=== PATIENT | female | born 1980 | race Caucasian/White ===

== ENCOUNTER 2016-07-30 20:30 | Emergency (ER) | payer BC, OTHER ==
[2016-07-30 20:37] VITALS: BP 131/68; PULSE 70; TEMP 97.6; BMI 35.4
[2016-07-30] MEDS ORDERED: KETOROLAC TROMETHAMINE 30 MG/1 ML VIAL IM ONE (20:45)
[2016-07-30] MEDS ORDERED: KETOROLAC TROMETHAMINE 30 MG/1 ML VIAL ONE (20:48)
--- NOTE | 2016-07-30 20:49 | PDOC ---
History of Present Illness <Zan Duval - Last Filed: 07/30/16 20:45> - General History Source: Patient, Family, Old Records Exam Limitations: No Limitations - History of Present Illness Initial Comments: 07/30/16 20:51 The patient is a 36 year old female with a significant past medical history of osteoporosis s/p torn meniscus, who presents to the emergency department today for further evaluation of left knee pain since this morning. The patient states that when she woke up this morning she immediately began feeling pain and is unsure of what may have triggered it. The patient reports that the pain radiates upward to her thigh and downward to her foot and is exacerbated by flexion and extension of her left knee. The patient reports associated lower back pain. The patient reports that she took 2 advil this morning and 2 advil this evening with minimal alleviation of symptoms. The patient states that she has been in physical therapy and receives cortisone shots. The patient denies fever, chills, and sweats. The patient denies nausea, vomiting, and diarrhea. The patient denies chest pain, cough, and shortness of breath. PCP: Dr. Marino Henry [phone] PAST MEDICAL HISTORY: No significant history reported PAST SURGICAL HISTORY: No significant history reported FAMILY HISTORY: No pertinent history reported SOCIAL HISTORY: None reported MEDICATIONS: Reviewed ALLERGIES: As per nursing notes <Alvarez Cam - Last Filed: 07/30/16 20:52> - General Chief Complaint: Pain Stated Complaint: LT KNEE PAIN Time Seen by Provider: 07/30/16 20:33 Past History - Past Medical History Disorders: Yes (PCOS) Thyroid Disease: Yes (HYPO) - Surgical History Abdominal Surgery: Yes (GASTRIC SLEEVE) - Psycho/Social/Smoking Cessation Hx Anxiety: No Suicidal Ideation: No Smoking History: Never smoked Hx Alcohol Use: No Substance Use Type: None <Zan Duval - Last Filed: 07/30/16 20:45> <Alvarez Cam - Last Filed: 07/30/16 20:52> - Past Medical History Allergies/Adverse Reactions: Allergies Allergy/AdvReac Type Severity Reaction Status Date / Time No Known Allergies Allergy Verified 08/17/14 18:19 Home Medications: Ambulatory Orders Levothyroxine [Synthroid -] 50 mcg PO DAILY 08/17/14 Ibuprofen [Advil -] 400 mg PO PRN PRN 07/30/16 Metformin HCl [Metformin HCl ER] 500 mg PO DAILY 07/30/16 Review of Systems - Review of Systems Able to Perform ROS?: Yes Musculoskeletal: Yes: Symptoms Reported, Back Pain, Joint Pain, Muscle Pain, Other (Left Knee pain) All Other Systems: Reviewed and Negative <Alvarez Cam - Last Filed: 07/30/16 20:52> *Physical Exam - Vital Signs Last Vital Signs Temp Pulse Resp BP Pulse Ox 97.6 F 70 18 131/68 100 07/30/16 20:35 07/30/16 20:35 07/30/16 20:35 07/30/16 20:35 07/30/16 20:35 - Physical Exam General Appearance: Yes: Nourished, Appropriately Dressed. No: Apparent Distress HEENT: positive: Normal ENT Inspection Neck: positive: Supple. negative: Tender Respiratory/Chest: positive: Lungs Clear, Normal Breath Sounds. negative: Respiratory Distress Cardiovascular: positive: Regular Rhythm, Regular Rate Gastrointestinal/Abdominal: positive: Normal Bowel Sounds, Soft Lymphatic: negative: Adenopathy Musculoskeletal: positive: Normal Inspection, Other (LT SIJ TENDERNESS). negative: Vertebral Tenderness Extremity: positive: Normal Capillary Refill, Normal Inspection, Normal Range of Motion, Other (+STRAIGHT LEG AT 30 DEGREES) Integumentary: positive: Normal Color Neurologic: positive: Fully Oriented, Alert, Normal Mood/Affect, Normal Response , Motor Strength 5/5. negative: Sensory Deficit <Zan Duval - Last Filed: 07/30/16 20:45> - Vital Signs Last Vital Signs Temp Pulse Resp BP Pulse Ox 97.6 F 70 18 131/68 100 07/30/16 20:35 07/30/16 20:35 07/30/16 20:35 07/30/16 20:35 07/30/16 20:35 <Alvarez Cam - Last Filed: 07/30/16 20:52> *DC/Admit/Observation/Transfer <aZn Duval - Last Filed: 07/30/16 20:45> - Attestations Scribe Attestion: 07/30/16 20:52 Documentation prepared by Alvarez Cam, acting as medical equipment technician for Zan Duval MD. <Alvarez Cam - Last Filed: 07/30/16 20:52> Diagnosis at time of Disposition: Lumbosacral radiculopathy at L5 - Discharge Dispostion Disposition: HOME Condition at time of disposition: Stable - Referrals Referrals: Marino Henry MD, MD [Primary Care Provider] - Call tomorrow - Patient Instructions Additional Instructions: TAKE IBURPOFEN 600 MG 3 TIMES A DAY FOR 5DAYS AVOID PROLONG PERIODS OF TIME IN SAME POSITION DO NOT LIFT WEIGHTS ICE OR HEAT TO AREA (WHATEVER WORKS BETTER FOR YOU) CALL YOUR DOCTOR TO START PHYSICAL THERAPY MARVIN LAY DOWN ON EITHER SIDE, KNEES BENT, STRAIGHT SPINE, CUSHION BETWEEN YUR KNEES RETURN IF WORSENING PAIN OR NEW SYMPTOMS LIKE INABILITY TO URINATE OR HOLD YOUR URINE
== END 2016-07-30 20:55 | disposition home or self-care (01) ==
LOC: FER 20:30
PROC: 3E0233Z Introduction of Anti-inflammatory into Muscle, Percutaneous Approach (ICD-10-PCS; principal; 2016-07-30)
DX: M54.17 Radiculopathy, lumbosacral region (principal); M81.0 Age-related osteoporosis without current pathological fracture; E28.2 Polycystic ovarian syndrome; Z98.84 Bariatric surgery status; E03.9 Hypothyroidism, unspecified
CPT/HCPCS: 99282-25

== ENCOUNTER 2017-06-25 20:14 | Emergency (ER) | payer BC, OTHER ==
--- NOTE | 2017-06-25 20:32 | PDOC ---
History of Present Illness - General Chief Complaint: Injury Stated Complaint: RIGHT MIDDLE TOE Time Seen by Provider: 06/25/17 20:32 History Source: Patient Exam Limitations: No Limitations - History of Present Illness Initial Comments: 06/25/17 20:36 CHIEF COMPLAINT: Right third toe pain after bending it back 3 days ago. HISTORY OF PRESENT ILLNESS: 37-year-old female with history of thyroid disease and polycystic ovarian syndrome. She presents after an injury to her right third toe. The injury was 3 days ago, she vented back while playing with her daughter. The pain has been getting worse, not better, so she decided to come in for an x-ray. REVIEW OF SYSTEMS: No fever or chills No other joint pains or injuries beyond the right third toe Past History - Past Medical History Allergies/Adverse Reactions: Allergies Allergy/AdvReac Type Severity Reaction Status Date / Time No Known Allergies Allergy Verified 08/17/14 18:19 Home Medications: Ambulatory Orders Levothyroxine [Synthroid -] 50 mcg PO DAILY 08/17/14 Ibuprofen [Advil -] 400 mg PO PRN PRN 07/30/16 Metformin HCl [Metformin HCl ER] 500 mg PO DAILY PRN 07/30/16 Disorders: Yes (PCOS) Thyroid Disease: Yes (HYPO) - Surgical History Abdominal Surgery: Yes (GASTRIC SLEEVE) - Suicide/Smoking/Psychosocial Hx Smoking History: Never smoked Hx Alcohol Use: No Substance Use Type: None *Physical Exam - Physical Exam Comments: 06/25/17 20:37 GENERAL: The patient is awake, alert, and fully oriented, in no acute distress. HEAD: Normal with no signs of trauma. EYES: Pupils equal, round and reactive to light, extraocular movements intact, sclera anicteric, conjunctiva clear. EXTREMITIES: Right third toe with tenderness at the MTP joint. Mild localized swelling. Skin intact. Distal capillary refill normal. No gross deformity. NEUROLOGICAL: Normal speech, normal gait. No limping. PSYCH: Normal mood, normal affect. SKIN: Warm, Dry, normal turgor, no rashes or lesions noted. Medical Decision Making - Medical Decision Making 06/25/17 21:08 Patient is a 37-year-old female who injured her right third toe several days ago and has pain. X-ray of the right third toe on my preliminary review shows no fracture or dislocation. Final radiology reading is pending at the time of discharge. Impression: Sprain right third toe. Plan: Ibuprofen as needed. *DC/Admit/Observation/Transfer Diagnosis at time of Disposition: Sprain of third toe, right Qualifiers: Encounter type: initial encounter Qualified Code(s): S93.504A - Unspecified sprain of right lesser toe(s), initial encounter - Discharge Dispostion Disposition: HOME Condition at time of disposition: Stable Admit: No - Referrals Referrals: Marino Henry MD, MD [Primary Care Provider] - - Patient Instructions Printed Discharge Instructions: DI for Toe Sprain Additional Instructions: You were evaluated for an injury to right third toe. The x-ray shows no fracture or dislocation. The diagnosis is a bruised toe. Take Advil as needed for pain. Follow-up with your primary care physician if the symptoms do not resolve. Return to the emergency department for any severe or progressive symptoms. - Post Discharge Activity
[2017-06-25 20:58] VITALS: BP 150/84; PULSE 62; TEMP 98.4; BMI 31.8
== END 2017-06-25 21:16 | disposition home or self-care (01) ==
LOC: FER 20:14
DX: S93.504A Unspecified sprain of right lesser toe(s), initial encounter (principal); X58.XXXA Exposure to other specified factors, initial encounter; Y93.89 Activity, other specified; Y92.9 Unspecified place or not applicable; E28.2 Polycystic ovarian syndrome; E03.9 Hypothyroidism, unspecified; Z98.84 Bariatric surgery status
CPT/HCPCS: 73660-TC; 99281-25

== ENCOUNTER 2022-02-27 14:56 | Emergency (ER) | payer BC, OTHER ==
[2022-02-27] MEDS ORDERED: IBUPROFEN 400 MG TABLET (FP) PO ONE ×2 (15:01→15:08)
[2022-02-27] MEDS ORDERED: LIDOCAINE 5% TOPICAL PATCH TP ONE (15:01)
[2022-02-27] MEDS ORDERED: LIDOCAINE 5% TOPICAL PATCH ONE (15:08)
[2022-02-27 15:33] VITALS: RESP 16; TEMP 98.2; BMI 38.2
[2022-02-27 16:22] VITALS: BP 152/74; PULSE 80
[2022-02-27] MEDS ORDERED: LIDOCAINE PATCH REMOVAL MC SCH (22:00)
== END 2022-02-27 16:29 | disposition home or self-care (01) ==
LOC: FER 14:56
DX: M54.41 Lumbago with sciatica, right side (principal)
CPT/HCPCS: 99283-25